=== PATIENT | male | born 2000 | race Hispanic/Latino ===

== ENCOUNTER 2022-01-29 11:06 | Emergency (ER) | payer SELFPAY ==
[2022-01-29] MEDS ORDERED: ONDANSETRON 4 MG/2 ML VIAL ONE (11:43)
[2022-01-29 11:54] LABS: Absolute Lymphocytes (CBC) 1.9 K/uL (0.7-4.9); Hematocrit 43.3 % (39.6-49.0); MCV 94.1 fL (80-100); MPV 7.2 fL (7.6-11.3)
--- NOTE | 2022-01-29 12:01 | RAD REPORT ---
EXAM DESCRIPTION: CTAbdomen Pelvis Wo Contrast - 01/29/2022 11:49 am CLINICAL HISTORY: abdominal pain COMPARISON: <Comparisons> TECHNIQUE: CT of the abdomen and pelvis was performed. All CT scans are performed using dose optimization technique as appropriate and may include automated exposure control or mA/KV adjustment according to patient size. FINDINGS: Lower chest: No acute abnormality. Liver: No acute abnormality or suspicious lesions. Biliary: No biliary ductal dilatation. Stomach: No significant focal abnormality. Duodenum: No significant focal abnormality. Pancreas: No significant abnormality. Spleen: No significant abnormality. Adrenal: No suspicious lesions. Kidney/ureter: No hydronephrosis. No renal calculi. Retroperitoneum: No retroperitoneal adenopathy. Vascular: No aneurysm. Bowel: No significant focal abnormality. Normal appendix. Peritoneum: No ascites or free air. Bladder: Grossly unremarkable. Reproductive: No adnexal masses. Bones: No acute fracture. Other: n/a IMPRESSION: No acute intra-abdominal or pelvic finding. Normal appendix.
[2022-01-29 12:08] LABS: Albumin 3.6 g/dL (3.4-5.0); Bilirubin Total 0.6 mg/dL (0.2-1.0); Potassium 3.6 mmol/L (3.5-5.1); Protein, Total 6.6 g/dL (6.4-8.2)
--- NOTE | 2022-01-29 12:23 | RAD REPORT ---
EXAM DESCRIPTION: RAD - Chest Single View - 01/29/2022 12:16 pm CLINICAL HISTORY: MALAISE COMPARISON: <Comparisons> FINDINGS: Lines: None. Lungs: No evidence of edema or pneumonia. Pleural: No significant pleural effusions or pneumothorax. Cardiac: The heart size is within normal limits. Mediastinum: Within normal limits. Bones: No acute fractures. Other: None IMPRESSION: No acute cardiopulmonary disease.
[2022-01-29 13:19] LABS: SARS-COV-2 RT PCR NEGATIVE (NEGATIVE)
[2022-01-29 14:41] LABS: Urine Blood Negative (Negative); Urine Glucose Negative (Negative); Urine Protein Negative (Negative); Urine pH 8.5 (5.0-7.0)
--- NOTE | 2022-01-29 14:41 | ER ---
Nurse's Notes [facility] Name: Juan Jose Mock Age: 21 yrs Sex: Male : 2000 Arrival Date: 01/29/2022 Time: 11:07 Bed 6 Private MD: Diagnosis: Abdominal pain, unspecified Presentation: 01/29 11:25 Chief complaint: Patient states: [place] with epigastric pain since yesterday. Stated vg1 "bright red blood" in vomit. Denies diarrhea. Coronavirus screen: Vaccine status: Patient reports being unvaccinated. Client denies travel out of the [place] in the last 14 days. Ebola Screen: Patient negative for fever greater than or equal to 101.5 degrees Fahrenheit, and additional compatible Ebola Virus Disease symptoms. Initial Sepsis Screen: Does the patient meet any 2 criteria? No. Patient's initial sepsis screen is negative. Does the patient have a suspected source of infection? No. Patient's initial sepsis screen is negative. Risk Assessment: Do you want to hurt yourself or someone else? Patient reports no desire to harm self or others. Onset of symptoms was January 28, 2022. 11:25 Method Of Arrival: Ambulatory vg1 11:25 Acuity: ZAHRA 3 vg1 Triage Assessment: 11:26 General: Appears in no apparent distress. comfortable, Behavior is calm, cooperative. vg1 Pain: Complains of pain in epigastric area Pain currently is 6 out of 10 on a pain scale. GI: Abdomen is round non-distended, Reports cramping, nausea, vomiting, Patient currently denies diarrhea. Historical: - Allergies: 11:26 No Known Allergies; vg1 - Home Meds: 11: None [Active]; vg1 - PMHx: 11: None; vg1 - PSHx: 11:26 None; vg1 - Immunization history:: Client reports having NOT received the Covid vaccine. - Social history:: Smoking status: Patient reports the use of cigarette tobacco products, 1 pack per week, Reported history of juuling and/or vaping. Screenin:37 Abuse screen: Denies threats or abuse. Nutritional screening: No deficits noted. ll1 Tuberculosis screening: No symptoms or risk factors identified. Fall Risk IV access (20 points). Total Romero Fall Scale indicates No Risk (0-24 pts). Assessment: 11:37 Reassessment: No changes from previously documented assessment. Patient and/or family ll1 updated on plan of care and expected duration. Pain level reassessed. Patient is alert, oriented x 3, equal unlabored respirations, skin warm/dry/pink. 12:00 Reassessment: No changes from previously documented assessment. Patient and/or family ll1 updated on plan of care and expected duration. Pain level reassessed. Patient is alert, oriented x 3, equal unlabored respirations, skin warm/dry/pink. 12:24 Reassessment: No changes from previously documented assessment. Patient and/or family ll1 updated on plan of care and expected duration. Pain level reassessed. Patient is alert, oriented x 3, equal unlabored respirations, skin warm/dry/pink. 14:30 Reassessment: No changes from previously documented assessment. Patient and/or family ll1 updated on plan of care and expected duration. Pain level reassessed. Patient is alert, oriented x 3, equal unlabored respirations, skin warm/dry/pink. gait steady to restroom. 15:03 GI: Bowel sounds present X 4 quads. Abd is soft and non tender X 4 quads. ll1 Vital Signs: 11:25 BP 116 / 56; Pulse 70; Resp 16; Temp 98.8(O); Pulse Ox 100% on R/A; Weight 81.65 kg; vg1 Height 5 ft. 7 in. (170.18 cm); Pain 6/10; 12:24 BP 108 / 58; Resp 16; ll1 15:02 BP 114 / 63; Pulse 60; Resp 15; Pulse Ox 100% ; ll1 11:25 Body Mass Index 28.19 (81.65 kg, 170.18 cm) vg1 ED Course: 11:07 Patient arrived in ED. am2 11:22 Williams Hanna is PHCP. jl9 11:22 Vahe Clark MD is Attending Physician. jl9 11:26 Triage completed. vg1 11:26 Arm band placed on. vg1 11:28 Araceli Bowers, MESFIN is Primary Nurse. ll1 11:28 Patient placed in an exam room, on a stretcher. ll1 11:37 Patient has correct armband on for positive identification. Bed in low position. Call ll1 light in reach. Side rails up X 1. Client placed on continuous cardiac and pulse oximetry monitoring. NIBP monitoring applied. 11:37 Inserted saline lock: 22 gauge in left antecubital area, using aseptic technique. Blood ll1 collected. 11:50 CT Abd/Pelvis - Without Contrast In Process Unspecified. EDMS 12:18 XRAY Chest (1 view) In Process Unspecified. EDMS 12:24 COVID-19/FLU A+B (Document "Date of Onset" if Symptomatic) Sent. ll1 15:03 No provider procedures requiring assistance completed. IV discontinued, intact, ll1 bleeding controlled, No redness/swelling at site. Pressure dressing applied. Administered Medications: 11:50 Drug: Zofran (Ondansetron) 4 mg Route: IVP; Site: left antecubital; ll1 15:03 Follow up: Response: No adverse reaction; Nausea is decreased ll1 Medication: 11:37 VIS not applicable for this client. ll1 Outcome: 14:40 Discharge ordered by . joe 15:03 Discharged to home ambulatory. ll1 15:03 Condition: stable 15:03 Discharge instructions given to patient, family, Instructed on discharge instructions, follow up and referral plans. medication usage, Demonstrated understanding of instructions, follow-up care, medications, Prescriptions given X 1. 15:04 Patient left the ED. ll1 Signatures: Dispatcher [employer] Inna Encinas Victoria, RN RN justine1 Araceli Bowers RN RN ll1 Williams Hanna9
--- NOTE | 2022-01-29 14:41 | EDPHYS ---
Physician Documentation [facility] Name: Juan Jose Mock Age: 21 yrs Sex: Male : 2000 Arrival Date: 01/29/2022 Time: 11:07 Bed 6 Private MD: ED Physician Vahe Clark HPI: 01/29 13:42 This 21 yrs old Male presents to ER via Ambulatory with complaints of jl9 Abdominal Pain, Nausea/Vomiting. 13:42 The patient presents with abdominal pain in the epigastric area. Onset: The jl9 symptoms/episode began/occurred yesterday. The symptoms do not radiate. Associated signs and symptoms: Pertinent positives: nausea. The symptoms are described as dull. Modifying factors: The symptoms are alleviated by nothing, the symptoms are aggravated by nothing. Severity of pain: in the emergency department the pain has resolved. Historical: - Allergies: 11: No Known Allergies; vg1 - Home Meds: 11: None [Active]; vg1 - PMHx: : None; vg1 - PSHx: 11:26 None; vg1 - Immunization history:: Client reports having NOT received the Covid vaccine. - Social history:: Smoking status: Patient reports the use of cigarette tobacco products, 1 pack per week, Reported history of juuling and/or vaping. ROS: 13:42 Constitutional: Negative for fever, chills, and weight loss, Eyes: Negative for injury, jl9 pain, redness, and discharge, ENT: Negative for injury, pain, and discharge, Neck: Negative for injury, pain, and swelling, Cardiovascular: Negative for chest pain, palpitations, and edema, Respiratory: Negative for shortness of breath, cough, wheezing, and pleuritic chest pain. 13:42 Back: Negative for injury and pain, : Negative for injury, bleeding, discharge, and swelling, MS/Extremity: Negative for injury and deformity, Skin: Negative for injury, rash, and discoloration, Neuro: Negative for headache, weakness, numbness, tingling, and seizure, Psych: Negative for depression, anxiety, suicide ideation, homicidal ideation, and hallucinations, Allergy/Immunology: Negative for hives, rash, and allergies, Endocrine: Negative for neck swelling, polydipsia, polyuria, polyphagia, and marked weight changes, Hematologic/Lymphatic: Negative for swollen nodes, abnormal bleeding, and unusual bruising. 13:42 Abdomen/GI: Positive for abdominal pain, nausea. Exam: 13:42 Constitutional: This is a well developed, well nourished patient who is awake, alert, jl9 and in no acute distress. Head/Face: Normocephalic, atraumatic. Eyes: Pupils equal round and reactive to light, extra-ocular motions intact. Lids and lashes normal. Conjunctiva and sclera are non-icteric and not injected. Cornea within normal limits. Periorbital areas with no swelling, redness, or edema. ENT: Mucous membranes moist. Neck: Trachea midline, no thyromegaly or masses palpated, and no cervical lymphadenopathy. Supple, full range of motion without nuchal rigidity, or vertebral point tenderness. No Meningismus. Chest/axilla: Normal chest wall appearance and motion. Nontender with no deformity. No lesions are appreciated. Cardiovascular: Regular rate and rhythm with a normal S1 and S2. No gallops, murmurs, or rubs. Normal PMI, no JVD. No pulse deficits. Respiratory: Lungs have equal breath sounds bilaterally, clear to auscultation and percussion. No rales, rhonchi or wheezes noted. No increased work of breathing, no retractions or nasal flaring. Abdomen/GI: Soft, non-tender, with normal bowel sounds. No distension or tympany. No guarding or rebound. No evidence of tenderness throughout. Back: No spinal tenderness. No costovertebral tenderness. Full range of motion. Skin: Warm, dry with normal turgor. Normal color with no rashes, no lesions, and no evidence of cellulitis. MS/ Extremity: Pulses equal, no cyanosis. Neurovascular intact. Full, normal range of motion. Neuro: Awake and alert, GCS 15, oriented to person, place, time, and situation. Cranial nerves II-XII grossly intact. Motor strength 5/5 in all extremities. Sensory grossly intact. Cerebellar exam normal. Normal gait. Psych: Awake, alert, with orientation to person, place and time. Behavior, mood, and affect are within normal limits. Vital Signs: 11:25 BP 116 / 56; Pulse 70; Resp 16; Temp 98.8(O); Pulse Ox 100% on R/A; Weight 81.65 kg; vg1 Height 5 ft. 7 in. (170.18 cm); Pain 6/10; 12:24 BP 108 / 58; Resp 16; ll1 15:02 BP 114 / 63; Pulse 60; Resp 15; Pulse Ox 100% ; ll1 11:25 Body Mass Index 28.19 (81.65 kg, 170.18 cm) vg1 MDM: 11:28 Patient medically screened. cassandra 13:43 Differential diagnosis: appendicitis, cholecystitis, diverticulitis, gastritis. Data jl9 reviewed: vital signs, nurses notes. 14:40 Counseling: I had a detailed discussion with the patient and/or guardian regarding: the 9 historical points, exam findings, and any diagnostic results supporting the discharge/admit diagnosis, radiology results, the need for outpatient follow up, to return to the emergency department if symptoms worsen or persist or if there are any questions or concerns that arise at home. Response to treatment: the patient's symptoms have resolved after treatment. 01/29 11:38 Order name: CBC with Diff; Complete Time: 12:10 01/29 11:38 Order name: CMP; Complete Time: 12:10 01/29 11:38 Order name: Lipase; Complete Time: 12:10 01/29 11:38 Order name: CT Abd/Pelvis - Without Contrast; Complete Time: 12:10 01/29 12:12 Order name: COVID-19/FLU A+B (Document "Date of Onset" if Symptomatic); Complete Time: 13:21 01/29 14:41 Order name: Urine Dipstick-Ancillary; Complete Time: 14:43 EDMS 01/29 11:38 Order name: IV Saline Lock; Complete Time: 11:41 01/29 11:38 Order name: Labs collected and sent; Complete Time: 11:41 9 01/29 11:38 Order name: Urine Dipstick-Ancillary (obtain specimen); Complete Time: 15:01 01/29 11:38 Order name: XRAY Chest (1 view); Complete Time: 12:26 jl9 Administered Medications: 11:50 Drug: Zofran (Ondansetron) 4 mg Route: IVP; Site: left antecubital; ll1 15:03 Follow up: Response: No adverse reaction; Nausea is decreased ll1 Disposition Summary: 01/29/22 14:40 Discharge Ordered Location: Home jl9 Condition: Stable jl9 Diagnosis - Abdominal pain, unspecified jl9 Followup: jl9 - With: Private Physician - When: 1 - 2 days - Reason: Recheck today's complaints, Continuance of care, Re-evaluation by your physician Discharge Instructions: - Discharge Summary Sheet jl9 - Abdominal Pain, Adult, [id number] jl9 - Nausea, Adult, [id number] jl9 Forms: - Work release form ll1 - Medication Reconciliation Form jl9 - Thank You Letter jl9 - Antibiotic Education jl9 - Prescription Opioid Use jl9 Prescriptions: - ondansetron 8 mg Oral tablet,disintegrating - take 1 tablet by ORAL route every 8 hours As needed; 30 tablet; Refills: 0, jl9 Product Selection Permitted Addendum: 02/02/2022 09:43 Co-signature as Attending Physician, Vahe Clark MD I agree with the assessment and c garza plan of care. Signatures: Dispatcher [employer] Vahe Freire MD MD cha Garcia, Victoria, RN RN vg1 Araceli Bowers RN RN ll1 Williams Hanna jl9
[2022-01-29 15:14] VITALS: TEMP 98.8; O2SAT 100
[2022-01-29 15:16] VITALS: BP 114/63
== END 2022-01-29 15:04 | disposition home or self-care (01) ==
LOC: ER 11:06
DX: R10.13 Epigastric pain (principal); R11.0 Nausea; Z20.822 Contact with and (suspected) exposure to COVID-19; F17.210 Nicotine dependence, cigarettes, uncomplicated
CPT/HCPCS: 0240U; 36415; 71045; 74176; 80053; 81003; 83690; 85025; 96374; 99284; J2405

== ENCOUNTER 2023-07-14 20:51 | Emergency (ER) | payer OTHER, SELFPAY ==
--- NOTE | 2023-07-14 23:12 | ER ---
Nurse's Notes 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 Firefighters stated that the O2 levels were below normal, so patient was recommended to come to the ER t be checked out". 21:00 Coronavirus screen: At this time, the client does not indicate any symptoms associated jw7 with coronavirus-19. Ebola Screen: No symptoms or risks identified at this time. Initial Sepsis Screen: Does the patient meet any 2 criteria? No. Patient's initial sepsis screen is negative. Does the patient have a suspected source of infection? No. Patient's initial sepsis screen is negative. Risk Assessment: Do you want to hurt yourself or someone else? Patient reports no desire to harm self or others. Onset of symptoms was July 14, 2023. Care prior to arrival: None. 21:00 Method Of Arrival: EMS: [facility] jw7 21:00 Acuity: ZAHRA 4 jw7 Triage Assessment: 21:00 General: Appears in no apparent distress. comfortable, Behavior is calm, cooperative, jw7 appropriate for age. Pain: Denies pain. EENT: No deficits noted. No signs and/or symptoms were reported regarding the EENT system. Neuro: Level of Consciousness is awake, alert, obeys commands, Oriented to person, place, time, situation, Appropriate for age. Cardiovascular: Heart tones S1 S2 present Capillary refill < 3 seconds Clubbing of nail beds is absent JVD is absent Patient's skin is warm and dry. Respiratory: Airway is patent Trachea midline Respiratory effort is even, unlabored, Respiratory pattern is regular, symmetrical, Breath sounds are clear bilaterally. GI: No signs and/or symptoms were reported involving the gastrointestinal system. Abdomen is flat, non-distended, Bowel sounds present X 4 quads. Abd is soft and non tender X 4 quads. : No deficits noted. No signs and/or symptoms were reported regarding the genitourinary system. Derm: No signs and/or symptoms reported regarding the dermatologic system. Skin is intact, is healthy with good turgor, Skin is dry, Skin is normal, Skin temperature is warm. Musculoskeletal: Circulation, motion, and sensation intact. Range of motion: intact in all extremities. Historical: - Allergies: 21:36 No Known Allergies; jw7 - Home Meds: 21:36 None [Active]; jw7 - PMHx: 21:36 None; jw7 - PSHx: 21:36 None; jw7 - Immunization history:: Adult Immunizations up to date. - Infectious Disease History:: Denies. - Social history:: Smoking status: Patient denies any tobacco usage or history of. Screenin:00 Abuse screen: Denies threats or abuse. Denies injuries from another. jw7 21:00 [facility] ED Fall Risk Assessment (Adult) History of falling in the last 3 months, jw7 including since admission No falls in past 3 months (0 pts) Confusion or Disorientation No (0 pts) Intoxicated or Sedated No (0 pts) Impaired Gait No (0 pts) Mobility Assist Device Used No (0 pt) Altered Elimination No (0 pt) Score/Fall Risk Level 0 - 2 = Low Risk Oriented to surroundings, Maintained a safe environment, Educated pt \\T\\ family on fall prevention, incl call for assistance when getting out of bed. Nutritional screening: No deficits noted. Tuberculosis screening: No symptoms or risk factors identified. Assessment: 21:00 General: See Triage Assessment. jw7 22:00 Reassessment: Patient appears in no apparent distress at this time. No changes from jw7 previously documented assessment. Patient and/or family updated on plan of care and expected duration. Pain level reassessed. Patient is alert, oriented x 3, equal unlabored respirations, skin warm/dry/pink. 23:00 Reassessment: Patient appears in no apparent distress at this time. No changes from jw7 previously documented assessment. Patient and/or family updated on plan of care and expected duration. Pain level reassessed. Patient is alert, oriented x 3, equal unlabored respirations, skin warm/dry/pink. 23:49 Reassessment: Patient appears in no apparent distress at this time. No changes from jw7 previously documented assessment. Patient and/or family updated on plan of care and expected duration. Pain level reassessed. Patient is alert, oriented x 3, equal unlabored respirations, skin warm/dry/pink. Vital Signs: 21:00 BP 124 / 68; Pulse 58; Resp 16 S; Pulse Ox 99% on R/A; Weight 81.65 kg; Height 5 ft. 7 jw7 in. ; Pain 0/10; 22:00 BP 124 / 76; Pulse 56; Resp 16 S; Pulse Ox 99% on R/A; jw7 23:00 BP 135 / 75; Pulse 61; Resp 17 S; Pulse Ox 99% on R/A; jw7 23:30 BP 136 / 72; Pulse 58; Resp 16 S; Pulse Ox 99% on R/A; jw7 21:00 Body Mass Index 28.19 (81.65 kg, 170.18 cm) jw7 21:00 Pain Scale: Adult jw7 ED Course: 20:55 Patient arrived in ED. ty 20:56 [facility]isella Barrios [facility]-C [facility] kb 20:56 Vahe Clark MD is Attending Physician. kb 21:00 Jenni Devlin, RN is Primary Nurse. jw7 21:00 Arm band placed on. jw7 21:00 Patient has correct armband on for positive identification. Bed in low position. Call jw7 light in reach. Provided Education on: Use of Call Light and need for an ABG. 21:36 Triage completed. jw7 21:39 No provider procedures requiring assistance completed. jw7 23:50 Patient did not have IV access during this emergency room visit. jw7 Administered Medications: No medications were administered Medication: 21:39 VIS not applicable for this client. jw7 Outcome: 23:11 Discharge ordered by . kb 23:50 Discharged to home ambulatory, jw7 23:50 Condition: stable 23:50 Discharge instructions given to patient, Instructed on discharge instructions, follow up and referral plans. Demonstrated understanding of instructions, follow-up care, 23:50 Patient left the ED. jw7 Signatures: Gisella Barrios FNP-C FNP-Ckb Waits, Jodi RN RN jwKevon Chirinos ty
--- NOTE | 2023-07-14 23:13 | EDPHYS ---
Physician Documentation [facility] Name: Juan Jose Mock Age: 23 yrs Sex: Male : 2000 Arrival Date: 07/14/2023 Time: 20:51 Bed 17 Private MD: ED Physician Vahe Clark HPI: 07/13 21:38 This 23 yrs old Male presents to ER via EMS with complaints of CO2 exposure. kb 21:38 Pt is a 23 year old male who was working when the CO2 alarm started going off. The fire kb department came out and their meter read that the oxygen level in the room was low and CO2 was high so they recommended he come to the ER for evaluation. Pt denies any symptoms. . Historical: - Allergies: 21:36 No Known Allergies; jw7 - Home Meds: 21:36 None [Active]; jw7 - PMHx: 21:36 None; jw7 - PSHx: 21:36 None; jw7 - Immunization history:: Adult Immunizations up to date. - Infectious Disease History:: Denies. - Social history:: Smoking status: Patient denies any tobacco usage or history of. ROS: 21:58 Constitutional: As per HPI kb Exam: 21:58 Constitutional: This is a well developed, well nourished patient who is awake, alert, kb and in no acute distress. Head/Face: Normocephalic, atraumatic. ENT: Moist Mucous membranes Cardiovascular: Regular rate Respiratory: Respirations even and unlabored. No increased work of breathing. Talking in full sentences Abdomen/GI: Soft, non-tender. No distention Skin: Warm, dry with normal turgor. Normal color. MS/ Extremity: Pulses equal, no cyanosis. Neurovascular intact. Full, normal range of motion. Neuro: Awake and alert, GCS 15, oriented to person, place, time, and situation. Moves all extremities. Normal gait. Vital Signs: 21:00 BP 124 / 68; Pulse 58; Resp 16 S; Pulse Ox 99% on R/A; Weight 81.65 kg; Height 5 ft. 7 jw7 in. ; Pain 0/10; 22:00 BP 124 / 76; Pulse 56; Resp 16 S; Pulse Ox 99% on R/A; jw7 23:00 BP 135 / 75; Pulse 61; Resp 17 S; Pulse Ox 99% on R/A; jw7 23:30 BP 136 / 72; Pulse 58; Resp 16 S; Pulse Ox 99% on R/A; jw7 21:00 Body Mass Index 28.19 (81.65 kg, 170.18 cm) jw7 21:00 Pain Scale: Adult jw7 MDM: 20:56 Patient medically screened. kb 21:58 Data reviewed: vital signs, nurses notes. Historians other than the Patient: EMS: [facility]. 23:11 Differential Diagnosis carbon monoxide poisoning, CO2 exposure. Counseling: I had a kb detailed discussion with the patient and/or guardian regarding the historical points, exam findings, and any diagnostic results supporting the discharge/admit diagnosis, lab results, the need for outpatient follow up, a family practitioner, to return to the emergency department if symptoms worsen or persist or if there are any questions or concerns that arise at home. 07/13 20:56 Order name: ADONAY; Complete Time: 23:29 kb Administered Medications: No medications were administered Disposition Summary: 07/14/23 23:11 Discharge Ordered Notes: Location: Home kb Condition: Stable kb Diagnosis - Person with feared health complaint in whom no diagnosis is made kb Followup: kb - With: Emergency Department - When: As needed - Reason: Worsening of condition Followup: kb - With: Private Physician - When: 2 - 3 days - Reason: Recheck today's complaints, Continuance of care, Re-evaluation by your physician Discharge Instructions: - Discharge Summary Sheet kb - Carbon Monoxide Poisoning, [id number] kb - Preventing Carbon Monoxide Poisoning kb Forms: - Medication Reconciliation Form kb - Antibiotic Education kb - Prescription Opioid Use kb - Patient Portal Instructions kb - Leadership Thank You Letter kb Addendum: 07/17/2023 22:03 Co-signature as Attending Physician, Vahe Clark MD I agree with the assessment and c garza plan of care. Signatures: Dispatcher [employer] Gisella العلي, AIRCRAFT PAINTER APPRENTICE-C AIRCRAFT PAINTER APPRENTICE-Vahe Devi MD MD cha Waits, Jodi, RN RN jw7
[2023-07-14 23:26] LABS: Blood Gas Oxyhemoglobin 88.3 % (94-97); Blood O2 Saturation 90.6 % (92-98.5)
[2023-07-14 23:27] LABS: Arterial Blood Carboxyhemoglob 0.9 % (0-1.5); Blood Gas THB 14.1 g/dl (12-18)
[2023-07-15 00:40] VITALS: BP 136/72; O2SAT 99
== END 2023-07-14 23:50 | disposition home or self-care (01) ==
LOC: ER 20:51
DX: Z71.1 Person with feared health complaint in whom no diagnosis is made (principal)
CPT/HCPCS: 36600; 82805